=== PATIENT | male | born 2000 | race Caucasian/White ===

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

== ENCOUNTER → 2021-03-30 | Outpatient (CLI) | payer OTHER ==
[~2021-03-30] MED LIST: AUGMENTIN 875-1 EACH PO; FLOXIN 0.3% OTIC5 ML AD; IBUPROFEN800 MG PO; ZOFRAN4 MG PO
== END ==
LOC: EXRD 09:45
DX: R10.84 Generalized abdominal pain (principal)
CPT/HCPCS: 76705

== ENCOUNTER → 2021-03-30 | Outpatient (CLI) | payer OTHER | LOC: KOH-I 11:42 | DX: M54.2 Cervicalgia (principal); M54.5 Low back pain; M51.34 Other intervertebral disc degeneration, thoracic region | CPT/HCPCS: 72040; 72100 ==

== ENCOUNTER → 2021-04-20 | Outpatient (CLI) | payer OTHER | LOC: NM 11:46 | DX: R10.84 Generalized abdominal pain (principal) | CPT/HCPCS: 78226; A9537 ==

== ENCOUNTER 2021-10-20 03:32 | Emergency (ER) | payer OTHER ==
[2021-10-20 05:19] LABS: HEMOGLOBIN 13.5 gm/dl (14.0-17.5); RED BLOOD COUNT 5.03 M/UL (4.20-5.50); WHITE BLOOD COUNT 11.4 K/UL (4.5-11.0)
[2021-10-20 05:39] LABS: BUN/CREATININE RATIO 27 (0-10)
[2021-10-20] MEDS ORDERED: IBUPROFEN600 MG PO (08:40)
== END 2021-10-20 08:57 | disposition home or self-care (01) ==
LOC: ER1 03:32
PROVIDERS: Student in an Organized Health Care Education/Training Program
DX: S29.9XXA Unspecified injury of thorax, initial encounter (principal); E66.9 Obesity, unspecified; W01.10XA Fall on same level from slipping, tripping and stumbling with subsequent striking against unspecified object, initial encounter; Y92.009 Unspecified place in unspecified non-institutional (private) residence as the place of occurrence of the external cause
CPT/HCPCS: 71046; 80048; 82550; 82553; 84484; 85025; 99283

== ENCOUNTER → 2021-12-10 | Outpatient (CLI) | payer OTHER ==
[~2021-12-10] MED LIST changes: +IBUPROFEN600 MG PO
== END ==
LOC: KOH-I 14:14
DX: M25.571 Pain in right ankle and joints of right foot (principal); M25.572 Pain in left ankle and joints of left foot; M79.672 Pain in left foot; M79.671 Pain in right foot
CPT/HCPCS: 73610; 73630